=== PATIENT | male | born 1975 | race Caucasian/White ===

== ENCOUNTER 2016-09-17 12:29 | Emergency (ER) | payer SELFPAY ==
[~2016-09-17] VITALS: Ht 188 cm; Wt 145.4 kg
[~2016-09-17 12:29] MED LIST: ASPI-630 PO; CYCL-331 PO; HYDR-971 PO; ZOLP10TA PO
[2016-09-17 12:45] VITALS: BP 135/82
--- NOTE | 2016-09-17 13:25 | ED.ADGEN ---
Past History Past Medical History: A-Fib, Hypertension Past Surgical History: Other Past Surgical History Shoulder surgery Smoking: Non-smoker Alcohol Use: None Drug Use: None Adult General Chief Complaint Chief Complaint back pain [facility] HPI Patient is a 41 year old M who presents with back pain that radiated down L leg. Pt states yesterday stepped off porch wrong and slipped while twisting back. Pt denies fall or hitting back. He thinks he heard a "Pop" in back. Then this am awoke with pain bilateral lower back and pain that radiated down back of L leg to knee. Pain worse with movement or sitting, no loss of bowel or bladder function. No weakness, numbness or tingling. Pt denies abdominal pain, no chest pain Review of Systems Review of Systems Constitutional: Denies fever or chills Eyes: Denies change in visual acuity, redness, or eye pain HENT: Denies nasal congestion or sore throat Respiratory: Denies cough or shortness of breath Cardiovascular: No additional information not addressed in HPI GI: Denies abdominal pain, nausea, vomiting, bloody stools or diarrhea : Denies dysuria or hematuria ] Integument: Denies rash or skin lesions Neurologic: Denies headache, focal weakness or sensory changes E Allergies Allergies Allergies Coded Allergies Type Severity Reaction Last Updated Verified No Known Drug Allergies 01/05/15 No Physical Exam Physical Exam Constitutional: Well developed, well nourished, no acute distress, non-toxic appearance. HENT: Normocephalic, atraumatic, bilateral external ears normal, oropharynx moist, no oral exudates, nose normal. Eyes: PERRL, EOMI, conjunctiva normal, no discharge Neck: Normal range of motion, no tenderness, supple, no stridor. Cardiovascular:Heart rate regular rhythm, no murmur Lungs & Thorax: Bilateral breath sounds clear to auscultation Abdomen: Bowel sounds normal, soft, no tenderness, no masses, no pulsatile masses. Skin: Warm, dry, no erythema, no rash. ] Back: atraumatic, no spinal tenderness to palpation, pt has paraspinal tenderness to palpation R and L Extremities: No tenderness, no cyanosis, no clubbing, ROM intact, no edema. Neurologic: Alert and oriented X 3, normal motor function, normal sensory function, no focal deficits noted. Psychologic: Affect normal, judgement normal, mood normal. Current Patient Data Vital Signs Vital Signs Date Time Temp Pulse Resp B/P (MAP) Pulse Ox O2 Delivery O2 Flow Rate FiO2 09/17/16 12:45 97.3 82 16 98 Room Air vitals all reviewed and normal including BP in nurses note EKG EKG [] Radiology/Procedures Radiology/Procedures [] Course & Med Decision Making Course & Med Decision Making Pertinent Labs and Imaging studies reviewed. (See chart for details) Pt states hx of back problems in past now acute strain no signs of trauma Because pt on Xeralto can not use NSAIDs so will discharge on NOrco and valium with follow up with PCP Final Impression Final Impression BACK PAIN[] Problems: Dragon Disclaimer Dragon Disclaimer This electronic medical record was generated, in whole or in part, using a voice recognition dictation system. JUAN HOPKINS MD September 17, 2016 13:25
== END 2016-09-17 13:50 | disposition home or self-care (01) ==
LOC: ER 12:29
DX: M54.89 Other dorsalgia (principal); I10 Essential (primary) hypertension; I48.91 Unspecified atrial fibrillation; W22.8XXA Striking against or struck by other objects, initial encounter; Y93.89 Activity, other specified; Y99.8 Other external cause status; Y92.89 Other specified places as the place of occurrence of the external cause
CPT/HCPCS: 99283

== ENCOUNTER 2016-12-30 12:33 | Emergency (ER) | payer BC ==
[2016-12-30] MEDS ORDERED: LORazepam 2 MG/ML VIAL IV ONE (13:00)
[2016-12-30] MEDS ORDERED: IV NORMAL SALINE 1,000ML 1,000 ML IV SCH (13:00)
[2016-12-30] MEDS ORDERED: IOHEXOL 300 MG/ML 75 ML VIAL. IV ONE (13:00)
[2016-12-30 13:02] LABS: BASO # 0.1 x10^3/uL (0.0-0.2); BASO % 1 % (0-3); EOS # 0.3 x10^3/uL (0.0-0.7); EOS % 3 % (0-3); HEMATOCRIT 44.7 % (39.0-53.0); HEMOGLOBIN 15.2 g/dL (13.0-17.5); LYMPH # 2.8 x10^3/uL (1.0-4.8); LYMPH % 27 % (24-48); MEAN CORPUSCULAR HEMOGLOBIN 27 pg (25-35); MEAN CORPUSCULAR HGB CONC 34 g/dL (31-37); MEAN CORPUSCULAR VOLUME 80 fL (79-100); MONO # 0.5 x10^3/uL (0.0-1.1); MONO % 5 % (0-9); NEUT % 66 % (31-73); PLATELET COUNT 341 x10^3/uL (140-400); RED CELL DISTRIBUTION WIDTH 13.4 % (11.5-14.5); WHITE BLOOD COUNT 10.6 x10^3/uL (4.0-11.0)
[2016-12-30 13:10] LABS: ALBUMIN 3.6 g/dL (3.4-5.0); ALBUMIN/GLOBULIN RATIO 0.8 (1.0-1.7); CALCIUM 9.1 mg/dL (8.5-10.1); CREATININE 1.3 mg/dL (0.7-1.3); GFR 61.5; POTASSIUM 4.3 mmol/L (3.5-5.1); TOTAL BILIRUBIN 0.4 mg/dL (0.2-1.0); TOTAL PROTEIN 8.1 g/dL (6.4-8.2)
[2016-12-30 13:13] LABS: POTASSIUM ISTAT 4.1 mmol/L (3.5-5.0)
--- NOTE | 2016-12-30 14:14 | RAD ---
Indication: Mid abdominal pain. Blood in urine today. Previous partial nephrectomy. Technique: Axial images and coronal and sagittal reformatted images are provided. 75 mL of intravenous Omnipaque 300 was administered. No comparison is available. One or more of the following individualized dose reduction techniques were utilized for this examination: 1. Automated exposure control 2. Adjustment of the mA and/or kV according to patient size 3. Use of iterative reconstruction technique Findings: The lung bases are clear. There is no pleural effusion. The heart is not enlarged. There is fatty infiltration of the liver. Gallbladder is unremarkable. Spleen is not enlarged. Pancreas and adrenals are unremarkable. Aorta is normal caliber. Left kidney is normal in appearance without stone, obstructing or nonobstructing. There are postsurgical changes in the right kidney compatible with provided history of partial nephrectomy. There is stranding of the perinephric fat. There is right perinephric fluid measuring 6 x 1.5 cm. Left ureter is not dilated. Lack of oral contrast limits evaluation of bowel. There is no small bowel obstruction or mural thickening. There is increased stool in the rectal vault, mild. Appendix is not definitely visualized although there are no secondary findings of an appendicitis. There is a hyperdensity in the dependent portion of the bladder measuring 5 x 2.3 cm in size. There is no bladder wall thickening. The bladder is not distended. Prostate is not enlarged. Calcified phleboliths and prostate calcifications are noted. There are degenerative changes in the spine without evidence of a lytic bone lesion. Impression: 1. Postoperative findings of a right partial nephrectomy. Stranding of the perinephric fat with some perinephric fluid which could be postoperative hematoma. Comparison to any prior studies may be of benefit. Correlate with the timing of previous surgery. 2. Hyperdensity within the dependent portion of the bladder is concerning for clot. Again, comparison to any recent priors would be beneficial to confirm finding in the bladder lumen is acute. Otherwise, cystoscopy may be required.
[2016-12-30] MEDS ORDERED: LIDOCAINE 2% TOPICAL JELLY 30GM TUBE. TP ONE (14:54)
[2016-12-30] MEDS ORDERED: LIDOCAINE 2% JELLY 10ML IN APPLICATOR. MM ONE (15:15)
--- NOTE | 2016-12-30 16:31 | PHYS DOC ---
Past History Past Medical History: A-Fib, Other Past Surgical History: Other Smoking: Non-smoker Additional Smoking Information: Pt uses chewing tobacco Alcohol Use: None Drug Use: None Adult General Chief Complaint Chief Complaint: blood in urine HPI HPI Patient is a 41-year-old male brought to the ED by EMS with bloody urine. Patient had a partial nephrectomy on December 18 at [facility] for a kidney mass that turned out to not be cancer. His surgeon was Dr. Rosado. His urine was initially clear. The patient ordinarily takes Xarelto for A. fib history. The patient initially was out of that and did not restart it right away , when he did restart it first he saw some brown color of his urine. Today, he had yovanny blood in his urine. Patient states he is very anxious about this. He is concerned that he is "bleeding internally". His nerves are very bad. He has sometimes had a prescription for Xanax. He needs something for his nerves. He's had no vomiting or blood in his stools. Review of Systems Review of Systems Constitutional: Denies fever or chills [] GI: He has had some epigastric abdominal pain : As in history of present illness Musculoskeletal: He has low back pain Current Medications Current Medications Current Medications Medications (Trade) Dose Ordered Sig/Elfego Start Time Stop Time Status Last Admin Dose Admin Iohexol (Omnipaque 300 Mg/ml) 75 ml 1X ONCE 12/30/16 13:00 12/30/16 13:01 DC Lidocaine HCl (Uro-Jet) 1 elvie 1X ONCE 12/30/16 15:15 12/30/16 15:16 DC Lidocaine HCl (Xylocaine 2% Topical 30gm Tube) 30 elvie STK-MED ONCE 12/30/16 14:54 12/30/16 14:55 DC Lorazepam (Ativan) 2 mg 1X ONCE 12/30/16 13:00 12/30/16 13:01 DC 12/30/16 12:50 2 MG Sodium Chloride 1,000 ml @ 100 mls/hr Q10H 12/30/16 13:00 12/30/16 22:59 12/30/16 12:50 100 MLS/HR Allergies Allergies Allergies Coded Allergies Type Severity Reaction Last Updated Verified No Known Drug Allergies 01/05/15 No Physical Exam Physical Exam Constitutional: Well developed, well nourished, no acute distress, non-toxic appearance. Vital signs stable, heart rate 79, not hypotensive, warm and dry. HENT: Normocephalic, atraumatic, bilateral external ears normal, nose normal. [ ] Eyes: conjunctiva normal, no discharge. [] Neck: Normal range of motion, no stridor. [] Cardiovascular:Heart rate regular rhythm, no murmur [] Lungs & Thorax: Bilateral breath sounds clear to auscultation [] Abdomen: Bowel sounds normal, soft, no tenderness, no masses, no pulsatile masses. Healing incisions appear healthy. No dehiscence or bleeding. Skin: Warm, dry, no erythema, no rash. [] Extremities: No tenderness, no cyanosis, no clubbing, ROM intact, no edema. [] Neurologic: Alert and oriented X 3, normal motor function, normal sensory function, no focal deficits noted. [] Current Patient Data Vital Signs Vital Signs Date Time Temp Pulse Resp B/P (MAP) Pulse Ox O2 Delivery O2 Flow Rate FiO2 12/30/16 12:33 98.2 85 18 96 Room Air Lab Results Laboratory Tests Test 12/30/16 12:40 12/30/16 13:08 White Blood Count 10.6 x10^3/uL (4.0-11.0) Red Blood Count 5.60 x10^6/uL (4.30-5.70) Hemoglobin 15.2 g/dL (13.0-17.5) Hematocrit 44.7 % (39.0-53.0) Mean Corpuscular Volume 80 fL (79-100) Mean Corpuscular Hemoglobin 27 pg (25-35) Mean Corpuscular Hemoglobin Concent 34 g/dL (31-37) Red Cell Distribution Width 13.4 % (11.5-14.5) Platelet Count 341 x10^3/uL (140-400) Neutrophils (%) (Auto) 66 % (31-73) Lymphocytes (%) (Auto) 27 % (24-48) Monocytes (%) (Auto) 5 % (0-9) Eosinophils (%) (Auto) 3 % (0-3) Basophils (%) (Auto) 1 % (0-3) Neutrophils # (Auto) 7.0 x10^3uL (1.8-7.7) Lymphocytes # (Auto) 2.8 x10^3/uL (1.0-4.8) Monocytes # (Auto) 0.5 x10^3/uL (0.0-1.1) Eosinophils # (Auto) 0.3 x10^3/uL (0.0-0.7) Basophils # (Auto) 0.1 x10^3/uL (0.0-0.2) Prothrombin Time 12.2 SEC (9.4-11.4) H Prothrombin Time INR 1.2 (0.9-1.1) H PTT 37 SEC (23-33) H Sodium Level 138 mmol/L (136-145) Potassium Level 4.3 mmol/L (3.5-5.1) Chloride Level 102 mmol/L (98-107) Carbon Dioxide Level 28 mmol/L (21-32) Anion Gap 8 (6-14) 18 mmol/L (6-14) H Blood Urea Nitrogen 18 mg/dL (8-26) Creatinine 1.3 mg/dL (0.7-1.3) Estimated GFR (Cockcroft-Gault) 61.5 BUN/Creatinine Ratio 14 (6-20) Glucose Level 155 mg/dL (70-99) H 170 mg/dL (60-99) H Calcium Level 9.1 mg/dL (8.5-10.1) Total Bilirubin 0.4 mg/dL (0.2-1.0) Aspartate Amino Transferase (AST) 11 U/L (15-37) L Alanine Aminotransferase (ALT) 28 U/L (16-63) Alkaline Phosphatase 90 U/L (46-116) Total Protein 8.1 g/dL (6.4-8.2) Albumin 3.6 g/dL (3.4-5.0) Albumin/Globulin Ratio 0.8 (1.0-1.7) L POC Hemoglobin 15.0 gm/dL POC Hematocrit 44 % POC Sodium 139 mmol/L (135-145) POC Potassium 4.1 mmol/L (3.5-5.0) POC Chloride 105 mmol/L (98-110) POC Total CO2 21 mmol/L (23-32) L POC Blood Urea Nitrogen 18 mg/dL (8-26) POC Creatinine 1.0 mg/dL (0.5-1.4) POC Ionized Calcium (Elva) 1.14 mmol/L (1.13-1.32) EKG EKG 12-lead EKG read by me. Sinus rhythm. Heart rate 78. There are no acute ST or T wave changes indicative of ischemia or infarction. No STEMI. 1233 [] Radiology/Procedures Radiology/Procedures REASON: recent partial nephrectomy, now hematuria PROCEDURE: CT ABD PELV W/ IV CONTRST ONLY Indication: Mid abdominal pain. Blood in urine today. Previous partial nephrectomy. Technique: Axial images and coronal and sagittal reformatted images are provided. 75 mL of intravenous Omnipaque 300 was administered. No comparison is available. One or more of the following individualized dose reduction techniques were utilized for this examination: 1. Automated exposure control 2. Adjustment of the mA and/or kV according to patient size 3. Use of iterative reconstruction technique Findings: The lung bases are clear. There is no pleural effusion. The heart is not enlarged. There is fatty infiltration of the liver. Gallbladder is unremarkable. Spleen is not enlarged. Pancreas and adrenals are unremarkable. Aorta is normal caliber. Left kidney is normal in appearance without stone, obstructing or nonobstructing. There are postsurgical changes in the right kidney compatible with provided history of partial nephrectomy. There is stranding of the perinephric fat. There is right perinephric fluid measuring 6 x 1.5 cm. Left ureter is not dilated. Lack of oral contrast limits evaluation of bowel. There is no small bowel obstruction or mural thickening. There is increased stool in the rectal vault, mild. Appendix is not definitely visualized although there are no secondary findings of an appendicitis. There is a hyperdensity in the dependent portion of the bladder measuring 5 x 2.3 cm in size. There is no bladder wall thickening. The bladder is not distended. Prostate is not enlarged. Calcified phleboliths and prostate calcifications are noted. There are degenerative changes in the spine without evidence of a lytic bone lesion. Impression: 1. Postoperative findings of a right partial nephrectomy. Stranding of the perinephric fat with some perinephric fluid which could be postoperative hematoma. Comparison to any prior studies may be of benefit. Correlate with the timing of previous surgery. 2. Hyperdensity within the dependent portion of the bladder is concerning for clot. Again, comparison to any recent priors would be beneficial to confirm finding in the bladder lumen is acute. Otherwise, cystoscopy may be required. DICTATED AND SIGNED BY: EDWARD HERNANDEZ MD DATE: 12/30/16 1408 [] Course & Med Decision Making Course & Med Decision Making Pertinent Labs and Imaging studies reviewed. (See chart for details) 41-year-old male who presents with hematuria after a partial nephrectomy on December 18. The patient is stable, with stable vital signs, but does have gross hematuria on presentation. Patient was given normal saline. He was extremely anxious and nervous so he was given some IV Ativan. Labs obtained and are unremarkable with stable hemoglobin at 15. I discussed the patient's CT scan with the radiologist. He does not see anything concerning in a patient who has had a recent partial nephrectomy, some evidence of blood around the right kidney and clot in the bladder, both of which are not surprising. The patient continued to complain of some dysuria and some feeling of not being able to empty. I believe his bladder clot is causing some obstruction. I spoke with the urologist taking calls for Dr. Rosado, the patient's surgeon. We discussed the case. His recommendation is to have the patient attempts to pass the bladder clot by urinating, if unable to do so, use a large Mcfarlane catheter to try dissection and/or irrigate the clot out. After this, if the patient is able to urinate, and if we can see through the patient's urine, he may be discharged. If the patient is not able to urinate or if the urine is thick and opaque, the patient needs to be hospitalized for 3 way bladder irrigation. ED RN did place a large Mcfarlane and was able to evacuate blood clot through the Mcfarlane. Some bladder irrigation was done and she felt that the patient's bladder emptied and clots were evacuated by the Mcfarlane. Therefore, the Mcfarlane was discontinued. The patient was able to urinate a small amount which did have a blood clot in it but is transparent although red. The patient is stable for discharge, we emphasized pushing fluids and he should return to the hospital if he has urinary retention or his his urine becomes opaque due to the amount of blood. Since his urologist/surgeon is at [facility], if he stable to do so, I advised him to return there. Also per the urologist he should hold his oral toe for a couple of days and he was advised to do so. [] Dragon Disclaimer Dragon Disclaimer This chart was dictated in whole or in part using Voice Recognition software in a busy, high-work load, and often noisy Emergency Department environment. It may contain unintended and wholly unrecognized errors or omissions. Departure Departure: Impression: Primary Impression: Hematuria, gross Additional Impressions: H/O partial nephrectomy Acute urinary retention Blood clot in bladder Disposition: HOME, SELF-CARE Condition: IMPROVED Referrals: PCP,NO (PCP) Patient Instructions: Hematuria, Adult, Urinary Retention, Acute, Male, Easy-to -Read Additional Instructions: Drink plenty of fluids, we want you to urinate frequently to help prevent a large blood clot from re-forming in your bladder. If you are unable to urinate and feel like there is another clot preventing you from urinating, attempt to urinate. If you are unable, return to emergency. If you start having urine that looks like straight blood, looks more like tomato juice than Shawn-Aid, return to emergency. Do not take Xarelto untill you are advised to restart it. Call the office tomorrow to check in with your urologist and make an appointment. Scripts Hydrocodone Bit/Acetaminophen (NORCO 5-325 TABLET) 1 Each Tablet 1-2 TAB PO PRN Q6HRS Y for PAIN, #10 TAB 0 Refills Prov: LESLEY TAPIA MD 12/30/16 Phenazopyridine Hcl (PYRIDIUM) 200 Mg Tablet 200 MG PO TID for urinary burning, #10 TAB Prov: LESLEY TAPIA MD 12/30/16 Problem Qualifiers LESLEY TAPIA MD Dec 30, 2016 16:31
[2016-12-30 16:39] VITALS: BP 148/80
[2016-12-30] MEDS ORDERED: HYDR-971 PO (16:48)
[2016-12-30] MEDS ORDERED: PHEN-318 PO (16:48)
[2016-12-30] MEDS ORDERED: IV NORMAL SALINE 1,000ML 1,000 ML IV ONE (19:00)
== END 2016-12-30 16:45 | disposition home or self-care (01) ==
LOC: ER 12:33
DX: R31.0 Gross hematuria (principal); R33.9 Retention of urine, unspecified; N32.89 Other specified disorders of bladder; I48.91 Unspecified atrial fibrillation; F17.220 Nicotine dependence, chewing tobacco, uncomplicated; Z90.5 Acquired absence of kidney; Z79.01 Long term (current) use of anticoagulants
CPT/HCPCS: 36415; 51702; 74177; 80047; 80053; 85025; 85610; 85730; 96361; 96374; 99285; J2060; J7030

== ENCOUNTER 2016-12-30 19:10 | Emergency (ER) | payer BC ==
[~2016-12-30] VITALS: Ht 188 cm; Wt 145.4 kg
[~2016-12-30 19:10] MED LIST changes: +PHEN-318 PO
[2016-12-30] MEDS ORDERED: LIDOCAINE 2% TOPICAL JELLY 30GM TUBE. TP ONE (19:18)
[2016-12-30] MEDS ORDERED: LIDOCAINE 2% JELLY 10ML IN APPLICATOR. ONE (19:19)
[2016-12-30] MEDS ORDERED: HYDROmorphone PF 1 MG/ML DISP.SYRIN ONE (19:30)
[2016-12-30] MEDS ORDERED: IV NORMAL SALINE 1,000ML 1,000 ML IV ONE (20:15)
[2016-12-30] MEDS ORDERED: HYDROmorphone PF 1 MG/ML DISP.SYRIN IM ONE (20:15)
[2016-12-30 20:27] LABS: BASO # 0.1 x10^3/uL (0.0-0.2); BASO % 1 % (0-3); EOS # 0.2 x10^3/uL (0.0-0.7); EOS % 2 % (0-3); HEMATOCRIT 40.1 % (39.0-53.0); HEMOGLOBIN 13.8 g/dL (13.0-17.5); LYMPH # 2.7 x10^3/uL (1.0-4.8); LYMPH % 26 % (24-48); MEAN CORPUSCULAR HEMOGLOBIN 27 pg (25-35); MEAN CORPUSCULAR HGB CONC 34 g/dL (31-37); MEAN CORPUSCULAR VOLUME 79 fL (79-100); MONO # 0.7 x10^3/uL (0.0-1.1); MONO % 7 % (0-9); NEUT # 6.6 x10^3uL (1.8-7.7); NEUT % 64 % (31-73); PLATELET COUNT 290 x10^3/uL (140-400); RED BLOOD COUNT 5.07 x10^6/uL (4.30-5.70); WHITE BLOOD COUNT 10.2 x10^3/uL (4.0-11.0)
[2016-12-30 20:33] LABS: ALBUMIN 3.3 g/dL (3.4-5.0); ALBUMIN/GLOBULIN RATIO 0.8 (1.0-1.7); CALCIUM 8.7 mg/dL (8.5-10.1); CREATININE 1.2 mg/dL (0.7-1.3); GFR 67.4; POTASSIUM 3.9 mmol/L (3.5-5.1); TOTAL BILIRUBIN 0.4 mg/dL (0.2-1.0); TOTAL PROTEIN 7.3 g/dL (6.4-8.2)
[2016-12-30] MEDS ORDERED: LORazepam 2 MG/ML VIAL ONE (20:57)
[2016-12-30] MEDS ORDERED: IV NORMAL SALINE 250ML 250 ML ONE (21:27)
[2016-12-30] MEDS ORDERED: IV NORMAL SALINE 500ML 500 ML ONE (21:29)
[2016-12-30] MEDS ORDERED: CONTRAST GIVEN MC PRN (21:30)
[2016-12-30 21:55] VITALS: BP 137/89
[2016-12-30] MEDS ORDERED: IOHEXOL 300 MG/ML 75 ML VIAL. IV ONE (22:00)
[2016-12-30] MEDS ORDERED: HYDROmorphone PF 1 MG/ML DISP.SYRIN IV ONE (22:15)
[2016-12-30] MEDS ORDERED: ONDANSETRON PF 4 MG/2 ML VIAL. IV ONE (22:15)
--- NOTE | 2016-12-30 22:44 | PHYS DOC ---
Past History Past Medical History: A-Fib, Other Past Surgical History: Other Smoking: Non-smoker Alcohol Use: None Drug Use: None Adult General Chief Complaint Chief Complaint: URINARY RETENTION HPI HPI Patient is a 41-year-old gentleman with history of paroxysmal atrial fibrillation who is on xarelto, who had a partial right nephrectomy done on December 18 at [facility] by Dr. Wesley secondary to a mass that per the patient's report he was told was not cancerous. Patient was seen here earlier today secondary to urinary retention and hematuria. Patient had a Mcfarlane catheter placed and was irrigated in the ER and his urine was irrigated to clear. After discussion with Dr. Birmingham, the patient was discharged from [facility] in stable condition without further hematuria. Patient had been given instructions to follow-up at [facility] if any further concerns or problems since we do not have access to urology here. Patient was instructed to return to the ER here if he should have any concerns or worries and is unable to get to [facility]. Patient was discharged approximately 2 hours prior to arrival to the ER. Patient reports she went home feeling well however prostate 2 hours after he went home he had difficulty with urination and was having severe suprapubic abdominal pain and felt like he was obstructed again. Patient reports that he was urinating gross blood prior to arrival to the ER. Upon arrival to the ER the patient was noted to be extremely diaphoretic, uncomfortable, and appeared to be in severe pain. Patient's vital signs were stable. He was tachycardic with a heart rate of 110. Patient's blood pressure was slightly elevated. Patient did have a fullness and tightness suprapubic region. A three-way Mcfarlane catheter was immediately inserted with a 3 L bag of continuous bladder irrigation initiated. Patient reported significant relief in his pain level once we're able to assist him with clearing his urine. Patient's urine initially was bright red and was irrigated with a Bello syringe. Some clots were obtained, after approximately 1 L of CBI his urine started to turn a light pink color. CBI was continued. Patient received approximately 4 L of CBI when he started having severe pain again. It appeared that his Mcfarlane catheter clotted OFF his urine output had returned to a dark red color again. Patient's Mcfarlane catheter was removed and the clots were irrigated and patient had a three- way catheter reinserted and CBI was continued. Immediately after the CBI was presumed the patient became diaphoretic and appeared anxious and started complaining of severe pain to his right flank. Patient reports that it felt like his kidney was bleeding and he appeared to be in a moderate amount of discomfort. Secondary to the patient's severe acute onset of his right flank pain and his gross hematuria I was concerned that he might have an arterial bleed within his right artery as a complication of his right partial nephrectomy. EMS had been notified for stat transfer however with him being on a blood thinner felt that the patient can be stabilized further prior to transfer. 2 units of emergent blood was transfused on the patient and 2 units of fresh frozen plasma was ordered to be thawed. Patient was given adequate analgesia and hydration was continued. A CTa of his abdomen and pelvis was ordered however after discussion with Dr. Birmingham the urologist who is covering for Dr. Wesley, he recommended to hold off on the CT scan since the patient had a ready on the CT earlier today and he would likely need a CT scan/arteriogram done when he arrives at [facility]. The CT scan was therefore canceled. Prior to transfer the patient will receive adequate volume and blood resuscitation and FFP to assist with reversal of his coagulation. Patient is currently not in atrial fibrillation and reports that he hasn't been in atrial fibrillation for a while. Patient reports that he goes in and out of it. I feel that it would be beneficial and risks and benefits far outweigh giving him FFP at this time. The case was discussed with the ER doctor at [facility] , and he was updated on the events that have transpired including the pain that he is having, the discussion with Dr. Camacho, the blood products that have been transfused. Dr. El has agreed to accept transfer of this patient. I discussed the transfer to [facility] with the patient and he is in complete agreement. He understands that we do not have access to urology here. I discussed the possibility of transfer him somewhere closer. He agrees that he would prefer to be at the facility where his primary urologist can care for him. Review of systems: Constitutional: Denies fever or chills Eyes: Denies change in visual acuity, redness, or eye pain HENT: Denies nasal congestion or sore throat All other review systems are negative except as documented in the history of present illness portion. Physical exam: Constitutional: Well developed, well nourished, no acute distress, non-toxic appearance. HENT: Normocephalic, atraumatic, bilateral external ears normal, nose normal. Eyes: EOMI, conjunctiva normal, no discharge. Neck: Normal range of motion, no tenderness, supple, no stridor. Cardiovascular:Heart rate regular rhythm Lungs & Thorax: Bilateral breath sounds clear to auscultation no respiratory distress Abdomen: Tenderness to palpation suprapubic region. Patient initially diaphoretic upon arrival to the ER. Please see above. Skin: Diaphoretic. Improved after Mcfarlane catheter Back: No tenderness, no CVA tenderness. While patient was here he started experiencing right flank pain during irrigation. See above Extremities: No tenderness, no cyanosis, no clubbing, ROM intact, no edema. Neurologic: Alert and oriented X 3, normal motor function, normal sensory function, no focal deficits noted. Psychologic: Affect normal, judgement normal, mood normal. Assessment and plan This is a 41-year-old gentleman with a recent partial right nephrectomy secondary to a possible mass who presents to ER today secondary to massive hematuria and severe right flank pain. Patient is been aggressively volume resuscitated here in the ED with 4 units of packed red blood cells and 2 units of FFP. Case has been discussed with both the urologist and the ER doctor. Patient will require transfer to [facility] for further evaluation of his gross hematuria. Patient will likely need interventional radiology as well as urology which are interventions and specialists which we do not have access to here at [facility]. This will be a higher level of care that the patient will need. Patient has been in agreement with this transfer. I have spoken to the urologist and the ER doctor and they're both in agreement with the transfer of this patient at this time. Patient has been stabilized to the best of my ability. Critical care time of 2 hours and 15 minutes were utilized and the treatment and management of this patient's massive hematuria, active bleeding, severe pain. This was exclusive of any procedures performed. Direct bedside monitoring and contact was performed throughout the near entirety of this patient's stay in the ED. Current Medications Current Medications Current Medications Medications (Trade) Dose Ordered Sig/Elfego Start Time Stop Time Status Last Admin Dose Admin Hydromorphone HCl (Dilaudid) 1 mg 1X ONCE 12/30/16 22:15 12/30/16 22:16 DC Info (Do NOT chart on this entry -- for MONITORING) 1 each PRN DAILY PRN 12/30/16 21:30 01/01/17 21:29 Iohexol (Omnipaque 300 Mg/ml) 75 ml 1X ONCE 12/30/16 22:00 12/30/16 22:01 DC Lidocaine HCl (Uro-Jet) 10 elvie STK-MED ONCE 12/30/16 19:19 12/30/16 19:20 DC Lidocaine HCl (Xylocaine 2% Topical 30gm Tube) 30 elvie STK-MED ONCE 12/30/16 19:18 12/30/16 19:19 DC Lorazepam (Ativan) 2 mg STK-MED ONCE 12/30/16 20:57 12/30/16 20:58 DC Ondansetron HCl (Zofran) 4 mg 1X ONCE 12/30/16 22:15 12/30/16 22:16 DC Sodium Chloride 500 ml @ As Directed STK-MED ONCE 12/30/16 21:29 12/30/16 21:30 DC Allergies Allergies Allergies Coded Allergies Type Severity Reaction Last Updated Verified No Known Drug Allergies 01/05/15 No Current Patient Data Lab Results Laboratory Tests Test 12/30/16 19:45 White Blood Count 10.2 x10^3/uL (4.0-11.0) Red Blood Count 5.07 x10^6/uL (4.30-5.70) Hemoglobin 13.8 g/dL (13.0-17.5) Hematocrit 40.1 % (39.0-53.0) Mean Corpuscular Volume 79 fL (79-100) Mean Corpuscular Hemoglobin 27 pg (25-35) Mean Corpuscular Hemoglobin Concent 34 g/dL (31-37) Red Cell Distribution Width 13.0 % (11.5-14.5) Platelet Count 290 x10^3/uL (140-400) Neutrophils (%) (Auto) 64 % (31-73) Lymphocytes (%) (Auto) 26 % (24-48) Monocytes (%) (Auto) 7 % (0-9) Eosinophils (%) (Auto) 2 % (0-3) Basophils (%) (Auto) 1 % (0-3) Neutrophils # (Auto) 6.6 x10^3uL (1.8-7.7) Lymphocytes # (Auto) 2.7 x10^3/uL (1.0-4.8) Monocytes # (Auto) 0.7 x10^3/uL (0.0-1.1) Eosinophils # (Auto) 0.2 x10^3/uL (0.0-0.7) Basophils # (Auto) 0.1 x10^3/uL (0.0-0.2) Sodium Level 138 mmol/L (136-145) Potassium Level 3.9 mmol/L (3.5-5.1) Chloride Level 103 mmol/L (98-107) Carbon Dioxide Level 25 mmol/L (21-32) Anion Gap 10 (6-14) Blood Urea Nitrogen 16 mg/dL (8-26) Creatinine 1.2 mg/dL (0.7-1.3) Estimated GFR (Cockcroft-Gault) 67.4 BUN/Creatinine Ratio 13 (6-20) Glucose Level 110 mg/dL (70-99) H Calcium Level 8.7 mg/dL (8.5-10.1) Total Bilirubin 0.4 mg/dL (0.2-1.0) Aspartate Amino Transferase (AST) 10 U/L (15-37) L Alanine Aminotransferase (ALT) 26 U/L (16-63) Alkaline Phosphatase 82 U/L (46-116) Total Protein 7.3 g/dL (6.4-8.2) Albumin 3.3 g/dL (3.4-5.0) L Albumin/Globulin Ratio 0.8 (1.0-1.7) L EKG EKG [] Radiology/Procedures Radiology/Procedures [] Course & Med Decision Making Course & Med Decision Making Pertinent Labs and Imaging studies reviewed. (See chart for details) [] Dragon Disclaimer Dragon Disclaimer This chart was dictated in whole or in part using Voice Recognition software in a busy, high-work load, and often noisy Emergency Department environment. It may contain unintended and wholly unrecognized errors or omissions. Departure Departure: Impression: Primary Impression: Hematuria Additional Impressions: Anticoagulated Postoperative anemia due to acute blood loss Paroxysmal atrial fibrillation Flank pain Disposition: 05 XFER OTHER Condition: GUARDED Referrals: PCP,NO (PCP) Problem Qualifiers REGINALDO SAWYER MD Dec 30, 2016 22:44
== END 2016-12-30 22:15 | disposition short-term general hospital (02) ==
LOC: ER 19:10
DX: R31.0 Gross hematuria (principal); D62 Acute posthemorrhagic anemia; I48.0 Paroxysmal atrial fibrillation; Z79.01 Long term (current) use of anticoagulants; Z90.5 Acquired absence of kidney
CPT/HCPCS: 36415; 51702; 80053; 85025; 86850; 86900; 86901; 86920; 86927; 96361; 96372; 96374; 99291; 99292; J1170; P9016; P9017; 99285-25; J7030

== ENCOUNTER 2017-02-21 13:36 | Emergency (ER) | payer SELFPAY ==
[~2017-02-21] VITALS: Ht 188 cm; Wt 145.4 kg
--- NOTE | 2017-02-21 14:50 | PHYS DOC ---
General Chief Complaint: BACK PAIN OR INJURY Stated Complaint: BACK PAIN Time Seen by MD: 14:35 Source: patient, old records Exam Limitations: no limitations Problems: History of Present Illness Initial Comments Patient is a 41-year-old male who comes to the ED complaining of low back injury. 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 He's had right-sided low back pain radiating to the right buttock and mid way down his posterior right thigh. He denies any leg weakness no incontinence no saddle anesthesia. He's had one prior exacerbation with similar symptoms and he thought he would be able to treat this at home. I find him in the exam room standing and he states that his a position of comfort. He does move very gingerly as if in severe discomfort when asked him to sit for neurologic evaluation. He admits that his back pain complaints are likely worsened by his weight and states he is working on weight loss. He does continue to smoke cigarettes he states [id number] medications are not helping. He is in agreement that imaging would be unnecessary as no trauma has actually taken place and no midline or bony discomfort is present. Timing/Duration: 24 hours Severity: severe Modifying Factors: worse with movement, improves with rest Associated Symptoms: other Allergies: Coded Allergies: ketorolac (Verified Allergy, Unknown, 02/21/17) tramadol (Verified Allergy, Unknown, 02/21/17) warfarin (Verified Allergy, Unknown, 02/21/17) Past Medical History Medical History: other (atrial fibrillation no longer on anticoagulation due to severe GI bleed, UTI) Surgical History: other (partial nephrectomy) Social History Smoker: cigarettes Alcohol: none Drugs: none Review of Systems Constitutional: denies chills, denies fever, denies malaise Respiratory: denies cough, denies shortness of breath Cardiovascular: denies chest pain, denies palpitations Gastrointestinal: denies abdominal pain, denies nausea, denies vomiting Genitourinary: denies dysuria, denies frequency, denies hematuria Musculoskeletal: see HPI, denies joint pain, denies neck pain Psychiatric/Neurological: see HPI, denies numbness, denies paresthesia, denies pre-existing deficit Physical Exam General Appearance: moderate distress, obese Ear, Nose, Throat: normal ENT inspection Neck: full range of motion, supple Respiratory: normal breath sounds, no respiratory distress Gastrointestinal: non tender, soft Back: no CVA tenderness, no vertebral tenderness, decreased range of motion, muscle spasm Extremities: normal range of motion, non-tender 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 He would like to receive a prescription and go home states he will return as needed. He was advised to stop smoking and continue to pursue weight loss. Departure Time of Disposition: 14:48 Disposition: 01 HOME, SELF-CARE Diagnosis: low back strain Condition: GOOD Patient Instructions: Low Back Strain with [facility] Additional Instructions: Off work through Saturday, note given. Keep activity to "pain free" [id number] Tylenol for baseline discomfort. Starting tomorrow heating pad to affected area 20 minutes at a time 4-6 times daily followed by gentle stretching. Prescriptions: Valium 5 mg quantity 5, Vicoprofen 7.5 mg, quantity 15 Do not take the medications together as they will have additive sedative effects. Follow-up with your doctor next week if no improvement. Return to ED with new or changing symptoms. VERONICA EID DO Feb 21, 2017 14:50
[2017-02-21 14:57] VITALS: BP 161/89
== END 2017-02-21 14:55 | disposition home or self-care (01) ==
LOC: ER 13:36
DX: S39.012A Strain of muscle, fascia and tendon of lower back, initial encounter (principal); I48.91 Unspecified atrial fibrillation; F17.210 Nicotine dependence, cigarettes, uncomplicated; Z87.440 Personal history of urinary (tract) infections; Z88.6 Allergy status to analgesic agent; Z88.8 Allergy status to other drugs, medicaments and biological substances; X50.1XXA Overexertion from prolonged static or awkward postures, initial encounter; Y93.89 Activity, other specified; Y99.8 Other external cause status; Y92.89 Other specified places as the place of occurrence of the external cause
CPT/HCPCS: 99283

== ENCOUNTER 2017-07-29 08:29 | Emergency (ER) | payer SELFPAY ==
[~2017-07-29] VITALS: Ht 188 cm; Wt 149.7 kg
[2017-07-29 08:40] VITALS: BP 141/89
[2017-07-29] MEDS ORDERED: CYCL5TAB PO (09:03)
[2017-07-29] MEDS ORDERED: HYDR-2758 PO (09:03)
--- NOTE | 2017-07-29 09:04 | PHYS DOC ---
Past History Past Medical History: A-Fib Past Surgical History: Other Smoking: Non-smoker Additional Smoking Information: chews tobacco Alcohol Use: None Drug Use: None Adult General Chief Complaint Chief Complaint: BACK PAIN OR INJURY HPI HPI This is a pleasant 42-year-old male presenting to the emergency department today with lower back pain that radiates into his left leg. He reports this is chronic condition that is been acutely exacerbated by work he was doing yesterday. He has taken opiates in the past for this which have helped but currently does not have opiates. He denies any fevers or chills. The pain is moderate in severity worse with moving. No specific timing. It is not associated with polyuria or dysuria. He reports normal urine color. He denies any pain or swelling in his testicles. he denies any recent trauma. Past medical history: History of hematuria and "spot on kidney". History of A. fib status post ablation. not currently or recently on anticoagulants. Past surgical history: Partial nephrectomy on the right. Ablation, and shoulder surgery. Social history: Positive for smoking, negative for drinking or drug use. Review of systems is negative for chest pain shortness of breath abdominal pain nausea vomiting diaphoresis. He denies numbness weakness or tingling in his extremities. He denies any pain or swelling in his testicles. All other review of systems is negative unless otherwise noted in history of present illness. ED course: 42-year-old male presenting with left lower back pain that radiates into his side suggestive of sciatica. Upon arrival patient is afebrile. Blood pressure mildly elevated. Pulse within normal limits. On evaluation the patient is nontoxic appearing and appears to be mildly uncomfortable from the pain. Abdomen is soft nondistended nontender palpation without rebound tenderness or guarding. No pulsatile mass upon palpation. No masses or hernias. Back exam shows no CVA tenderness. Laparoscopic abdominal surgery sites are clean dry and intact on the right side status post left partial nephrectomy. On examination the patient's extremities has 2+ deep tendon reflexes bilaterally with palpable pulses in both extremities. Patient is able to wiggle toes and has normal sensation in the foot. 2 second cap refill bilaterally. The remainder the exam is unremarkable. We will order the patient a muscle relaxant and pain medication to follow-up with her primary care doctor in the next 4-5 days. The patient was then discharged home in stable condition to follow up with their primary care physician over the next 2-3 days. They were to return if their symptoms worsened or if they were concerned for any reason. [id number] discharge instructions and return precautions were given. Patient's questions were answered to their satisfaction. Patient is comfortable with plan. Review of Systems Review of Systems SEE ABOVE. Allergies Allergies Allergies Coded Allergies Type Severity Reaction Last Updated Verified ketorolac Allergy Unknown 07/29/17 Yes tramadol Allergy Unknown 07/29/17 Yes warfarin Allergy Unknown 07/29/17 Yes Physical Exam Physical Exam SEE ABOVE Constitutional: Well developed, well nourished, no acute distress, non-toxic appearance. [] HENT: Normocephalic, atraumatic, bilateral external ears normal, oropharynx moist, no oral exudates, nose normal. [] Eyes: PERRLA, EOMI, conjunctiva normal, no discharge. [] Neck: Normal range of motion, no tenderness, supple, no stridor. [] Cardiovascular:Heart rate regular rhythm, no murmur [] Lungs & Thorax: Bilateral breath sounds clear to auscultation [] Abdomen: Bowel sounds normal, soft, no tenderness, no masses, no pulsatile masses. [] Skin: Warm, dry, no erythema, no rash. [] Back: No tenderness, no CVA tenderness. [] Extremities: No tenderness, no cyanosis, no clubbing, ROM intact, no edema. [] Neurologic: Alert and oriented X 3, normal motor function, normal sensory function, no focal deficits noted. [] Psychologic: Affect normal, judgement normal, mood normal. [] Current Patient Data Vital Signs Vital Signs Date Time Temp Pulse Resp B/P (MAP) Pulse Ox O2 Delivery O2 Flow Rate FiO2 07/29/17 08:40 97.9 88 16 99 Room Air EKG EKG [] Radiology/Procedures Radiology/Procedures [] Course & Med Decision Making Course & Med Decision Making Pertinent Labs and Imaging studies reviewed. (See chart for details) [] Dragon Disclaimer Dragon Disclaimer This electronic medical record was generated, in whole or in part, using a voice recognition dictation system. Departure Departure: Impression: Primary Impression: Back pain Disposition: HOME, SELF-CARE Condition: STABLE Referrals: PCP,NO (PCP) JOSHUA COHEN MD Patient Instructions: Back Exercises, [id number], Back Pain, Adult Additional Instructions: Thank you for allowing us to participate in your care today. Followup with your primary care physician in 3 days if your symptoms do not improve. Call your Primary Doctor tomorrow and inform them of your visit today. If you do not have a primary care provider you can ask for a list of our primary care providers. Return to the emergency department you have any new or concerning findings. This should be evaluated by the primary care physician and any necessary consulting services for continued management within a few days after discharge. Return to emergency room if you have any new or concerning symptoms including but not limited to fever, chills, nausea, vomiting, intractable pain, any new rashes, chest pain, shortness of air, uncontrolled bleeding, difficulty breathing, and/or vision loss. You may have been prescribed medication that can change in your level of thinking and ability to operate machinery. These medications include hydrocodone and Ativan. Also, Benadryl has been known to do this as well. Be sure to check with your pharmacist and ask if the medications you've prescribed can affect your level of consciousness. I recommend not operating heavy machinery or driving while on medication such as these. Scripts Cyclobenzaprine Hcl (CYCLOBENZAPRINE HCL) 5 Mg Tablet 1 TAB PO QHS, #7 TAB Prov: BYRON TORRES MD 07/29/17 Hydrocodone Bit/Acetaminophen (HYDROCODONE-APAP 5-325 ) 1 Each Tablet 1 TAB PO PRN Q6HRS Y for PAIN, #10 TAB 0 Refills Prov: BYRON TORRES MD 07/29/17 BYRON TORRES MD Jul 29, 2017 09:04
== END 2017-07-29 09:19 | disposition home or self-care (01) ==
LOC: ER 08:29
DX: M54.5 Low back pain (principal); I48.91 Unspecified atrial fibrillation; F17.220 Nicotine dependence, chewing tobacco, uncomplicated; Z88.6 Allergy status to analgesic agent; Z88.8 Allergy status to other drugs, medicaments and biological substances
CPT/HCPCS: 99283

== ENCOUNTER 2018-05-28 17:39 | Emergency (ER) | payer BC ==
[~2018-05-28] VITALS: Ht 188 cm; Wt 146.1 kg
[~2018-05-28 17:39] MED LIST changes: +CYCL5TAB PO; +HYDR-2155 PO; +HYDR-3165 PO; -HYDR-971 PO
[2018-05-28] MEDS ORDERED: ORPH-16 PO (18:30)
[2018-05-28] MEDS ORDERED: OXYC1TAB15 PO (18:30)
--- NOTE | 2018-05-28 18:30 | PHYS DOC ---
Past History Past Medical History: A-Fib, Other Past Surgical History: Other Smoking: Non-smoker Additional Smoking Information: CHEWS TOBACCO Alcohol Use: None Drug Use: None Adult General Chief Complaint Chief Complaint: BACK PAIN OR INJURY HPI HPI Patient is a 43-year-old male that presents with a one-day history of low back pain. This started yesterday when he tried to lift a transmission. He has a history of back pain that goes back 3 or 4 years and has episodes around every 6 months of sharp pain in his lower back after activity. He took Tylenol and Advil yesterday and all day today to no relief. He describes the pain as a 10 out of 10 and says that it radiates a little bit to his left hip. He describes this episode as very similar to the episodes he's experienced before, when they have happened he has gotten relief from a muscle relaxant and hydrocodone has helped a little bit. Review of Systems Review of Systems Constitutional: Denies fever or chills [] Eyes: Denies change in visual acuity, redness, or eye pain [] HENT: Denies nasal congestion or sore throat [] Respiratory: Denies cough or shortness of breath [] Cardiovascular: Denies chest pain or palpitations GI: Denies abdominal pain, nausea, vomiting, or diarrhea [] : Denies dysuria or hematuria [] Musculoskeletal: Admits to back pain Integument: Denies rash or skin lesions [] Neurologic: Denies headache Complete systems were reviewed and found to be within normal limits, except as documented in this note. Allergies Allergies Allergies Coded Allergies Type Severity Reaction Last Updated Verified ketorolac Allergy Unknown 05/28/18 Yes tramadol Allergy Unknown 07/29/17 Yes warfarin Allergy Unknown 07/29/17 Yes Physical Exam Physical Exam Constitutional: Well developed, well nourished, no acute distress, non-toxic appearance. [] HENT: Normocephalic, atraumatic, nose normal. [] Eyes: Conjunctiva normal, no discharge. [] Neck: Normal range of motion, no tenderness, no meningeal signs Cardiovascular: Heart rate regular rhythm, no murmur [] Lungs & Thorax: Bilateral breath sounds clear to auscultation [] Abdomen: Soft, no tenderness. [] Skin: Warm, dry, no erythema, no rash. [] Back: Back pain from the center of the low back L2 - L5, radiates down into the left gluteal region, straight leg raise positive bilateral. [] Extremities: No tenderness, no edema. [] Neurologic: Alert and oriented X 3, no focal deficits noted. [] Psychologic: Affect normal, judgement normal, mood normal. [] Current Patient Data Vital Signs Vital Signs Date Time Temp Pulse Resp B/P (MAP) Pulse Ox O2 Delivery O2 Flow Rate FiO2 05/28/18 17:50 97.5 100 18 97 Room Air EKG EKG [] Radiology/Procedures Radiology/Procedures [] Course & Med Decision Making Course & Med Decision Making Pertinent Labs and Imaging studies reviewed. (See chart for details) 43 YO M that presented with a one day history of lower back pain. He has a 3-4 year history of episodes of lower back pain associated with activity. History and physical exam were concerning for muscle strain or herniated disc in the lower back. Pain management and physical therapy options for home were discussed. Patient was told to consider further work-up including a lower back MRI as an outpatient if the pain were to get worse or the episodes were to increase in frequency. Patient stable for discharge with outpatient follow-up with PCP. Discussed findings and plan with patient, who acknowledge understanding and agreement. Dragon Disclaimer Dragon Disclaimer This electronic medical record was generated, in whole or in part, using a voice recognition dictation system. Departure Departure: Impression: Primary Impression: Back pain Disposition: 01 HOME, SELF-CARE Condition: STABLE Referrals: PCP,NO (PCP) Patient Instructions: Back Pain, Adult, [id number] Scripts Orphenadrine Citrate (ORPHENADRINE CITRATE) 100 Mg Tablet.er 1 TAB PO BID PRN for MUSCLE SPASMS, #14 TAB 0 Refills Prov: SPENCER LIN DO 05/28/18 Oxycodone Hcl/Acetaminophen (PERCOCET 5-325 MG TABLET ) 1 Each Tablet 0.5-1 TAB PO PRN Q6HRS PRN for PAIN, #10 TAB Prov: SPENCER LIN DO 05/28/18 Problem Qualifiers Primary Impression: Back pain Back pain location: low back pain Chronicity: acute Back pain laterality: bilateral Sciatica presence: with sciatica Sciatica laterality: sciatica of right side Qualified Codes: M54.41 - Lumbago with sciatica, right side SPENCER LIN DO May 28, 2018 18:30
[2018-05-28] MEDS ORDERED: KETOROLAC 30 MG/ML VIAL. ONE (18:32)
[2018-05-28 18:42] VITALS: BP 136/76
[2018-05-28] MEDS ORDERED: KETOROLAC 30 MG/ML VIAL. IM ONE (18:45)
== END 2018-05-28 18:42 | disposition home or self-care (01) ==
LOC: ER 17:39
DX: M54.41 Lumbago with sciatica, right side (principal); I48.91 Unspecified atrial fibrillation; F17.220 Nicotine dependence, chewing tobacco, uncomplicated; Z88.6 Allergy status to analgesic agent; Z88.8 Allergy status to other drugs, medicaments and biological substances
CPT/HCPCS: 96372; 99283; J1885

== ENCOUNTER 2020-02-25 16:58 | Emergency (ER) | payer SELFPAY ==
[~2020-02-25] VITALS: Ht 182.9 cm; Wt 136.0 kg
[~2020-02-25 16:58] MED LIST changes: +ORPH-16 PO; +OXYC1TAB15 PO
--- NOTE | 2020-02-25 17:42 | RAD ---
EXAM: CHEST ONE VIEW. HISTORY: Cough. COMPARISON: None. FINDINGS: A frontal view of the chest is obtained. There are no confluent infiltrates. There is no pneumothorax or pleural effusion. The heart is not enlarged. IMPRESSION: 1. No confluent infiltrates. Electronically signed by: Maricel Hernandez MD (02/25/2020 5:39 PM) [facility]
--- NOTE | 2020-02-25 17:46 | EKG ---
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
--- NOTE | 2020-02-25 18:02 | PHYS DOC ---
General Adult EDM: Chief Complaint: COUGH HPI: HPI: 44-year-old male past medical history significant for hypertension, atrial fibrillation and insomnia, presents to the ED with complaints of fatigue, tired, lacking energy, chills, lack of appetite, stating he lost 20 pounds since his symptoms started on Saturday. States he had a brief episode of shortness of breath today that he attributed to anxiety, has since resolved. Does not have any routine primary care physician, discontinued his Xarelto due to high cost/financial burden, on aspirin. Is concerned he has mono. (PATRICIA FORD DO) Review of Systems: Review of Systems: Constitutional: Denies fever or chills Eyes: Denies change in visual acuity HENT: Denies nasal congestion or sore throat Respiratory: Denies cough or hemoptysis Cardiovascular: Denies chest pain or edema or syncope GI: Denies abdominal pain, nausea, vomiting, bloody stools or diarrhea : Denies dysuria or hematuria Musculoskeletal: Denies back pain or joint pain Integument: Denies rash Neurologic: Denies headache, focal weakness or sensory changes Endocrine: Denies polyuria or polydipsia Lymphatic: Denies swollen glands Psychiatric: Denies depression or anxiety (PATRICIA FORD DO) Heart Score: Risk Factors: Risk Factors: DM, Current or recent (<one month) smoker, HTN, HLP, family history of CAD, obesity. Risk Scores: Score 0 - 3: 2.5% MACE over next 6 weeks - Discharge Home Score 4 - 6: 20.3% MACE over next 6 weeks - Admit for Clinical Observation Score 7 - 10: 72.7% MACE over next 6 weeks - Early Invasive Strategies (PATRICIA FORD DO) Physical Exam: PE: Constitutional: Well developed, well nourished, no acute distress, non-toxic appearance. [] HENT: Normocephalic, atraumatic, bilateral external ears normal, oropharynx moist, no oral exudates/erythema, nose normal. [] Eyes:EOMI, conjunctiva normal, no discharge. [] Neck: Normal range of motion, no tenderness, supple, no stridor. [] Cardiovascular:Heart rate regular rhythm, no murmur [] Lungs & Thorax: Bilateral breath sounds clear to auscultation [] Abdomen: Bowel sounds normal, soft, no tenderness, no masses, no pulsatile masses. [] No splenomegaly Skin: Warm, dry, no erythema, no rash. [] Back: No tenderness, no CVA tenderness. [] Extremities: No tenderness, no cyanosis, no clubbing, ROM intact, no edema. [] Neurologic: Alert and oriented X 3, normal motor function, normal sensory function, no focal deficits noted. [] Psychologic: Affect flat, judgement normal, mood normal. [] (PATRICIA FORD DO) EKG: EKG: Sinus rhythm at 83 bpm, left axis deviation, QTC 450, no T wave inversions, no ST elevations or ST depressions, no voltage in lead II (PATRICIA FORD DO) Radiology/Procedures: Radiology/Procedures: [][] IMAGING REPORT Signed PATIENT: STEPHANI KANGACCOUNT: [id number] : 1975 LOCATION: ER AGE: 44 SEX: M EXAM STATUS: REG ER ORD. PHYSICIAN: PATRICIA FORD DO REASON: cough PROCEDURE: CHEST AP ONLY EXAM: CHEST ONE VIEW. HISTORY: Cough. COMPARISON: None. FINDINGS: A frontal view of the chest is obtained. There are no confluent infiltrates. There is no pneumothorax or pleural effusion. The heart is not enlarged. IMPRESSION: 1. No confluent infiltrates. Electronically signed by: Maricel Hernandez MD (02/25/2020 5:39 PM) [facility] DICTATED AND SIGNED BY: BLANCA HERNANDEZ MD DATE: 02/25/201738 CC: PCP,NO; PATRICIA FORD DO ~ (PATRICIA FORD DO) Impressions: EXAM: CHEST ONE VIEW. HISTORY: Cough. COMPARISON: None. FINDINGS: A frontal view of the chest is obtained. There are no confluent infiltrates. There is no pneumothorax or pleural effusion. The heart is not enlarged. IMPRESSION: 1. No confluent infiltrates. Electronically signed by: Maricel Hernandez MD (02/25/2020 5:39 PM) [facility] DICTATED AND SIGNED BY: BLANCA HERNANDEZ MD DATE: 02/25/201738 CC: PCP,AMARI; PATRICIA FORD DO ~ (JOVANA RODRIGUEZ DO) Course & Med Decision Making: Course & Med Decision Making Pertinent Labs and Imaging studies reviewed. (See chart for details) Concern for generalized fatigue - broad differential. [facility]/covid test and labs pending. Normal cxr. HR 95 on arrival. Speaking in full sentences, no respiratory distress. Thyroid etiology possible but pe does not resemble an endocrine emergency. Due to shift change, pt was signed out to oncoming physician Dr. Rodriguez. (PATRICIA FORD DO) Course & Med Decision Making Patient's labs are unremarkable. His chest x-ray is negative for acute findings. His mono screen is negative. The patient appears to have a viral illness of some kind. I have advised supportive care at home. He is stable for discharge at this time. (JOVANA RODRIGUEZ DO) Dragon Disclaimer: Dragon Disclaimer: This electronic medical record was generated, in whole or in part, using a voice recognition dictation system. (PATRICIA FORD DO) Departure Departure: Impression: Primary Impression: Viral URI with cough Disposition: 01 DC HOME SELF CARE/HOMELESS Condition: STABLE Referrals: PCP,AMARI (PCP) Patient Instructions: Upper Respiratory Infection, Adult, [id number] PATRICIA FORD DO Feb 25, 2020 18:02 JOVANA RODRIGUEZ DO Feb 25, 2020 19:28
[2020-02-25 18:42] LABS: BASO % 0 % (0-3); EOS # 0.1 x10^3/uL (0.0-0.7); EOS % 1 % (0-3); HEMATOCRIT 47.1 % (39.0-53.0); HEMOGLOBIN 15.6 g/dL (13.0-17.5); LYMPH # 1.9 x10^3/uL (1.0-4.8); LYMPH % 22 % (24-48); MEAN CORPUSCULAR HEMOGLOBIN 27 pg (25-35); MEAN CORPUSCULAR HGB CONC 33 g/dL (31-37); MEAN CORPUSCULAR VOLUME 81 fL (79-100); MONO # 0.6 x10^3/uL (0.0-1.1); MONO % 7 % (0-9); NEUT # 5.8 x10^3uL (1.8-7.7); NEUT % 69 % (31-73); PLATELET COUNT 219 x10^3/uL (140-400); RED BLOOD COUNT 5.81 x10^6/uL (4.30-5.70); RED CELL DISTRIBUTION WIDTH 13.6 % (11.5-14.5); WHITE BLOOD COUNT 8.4 x10^3/uL (4.0-11.0)
[2020-02-25 18:49] LABS: MONONUCLEOSIS PATIENT NEGATIVE (NEGATIVE)
[2020-02-25 18:50] LABS: CALCIUM 9.2 mg/dL (8.5-10.1); CREATININE 1.2 mg/dL (0.7-1.3); GFR 66.4; POTASSIUM 3.2 mmol/L (3.5-5.1)
[2020-02-25 18:56] LABS: ALBUMIN 3.7 g/dL (3.4-5.0); ALBUMIN/GLOBULIN RATIO 1.1 (1.0-1.7); TOTAL BILIRUBIN 0.7 mg/dL (0.2-1.0); TOTAL PROTEIN 7.2 g/dL (6.4-8.2)
[2020-02-25 19:30] VITALS: BP 134/77
== END 2020-02-25 19:34 | disposition home or self-care (01) ==
LOC: MERGE 16:58 → ER 16:58
DX: J06.9 Acute upper respiratory infection, unspecified (principal); I10 Essential (primary) hypertension; I48.91 Unspecified atrial fibrillation; G47.00 Insomnia, unspecified
CPT/HCPCS: 36415; 71045; 80053; 84484; 85025; 86308; 93005; 99285

== ENCOUNTER 2021-02-16 10:19 | Emergency (ER) | payer SELFPAY ==
[~2021-02-16] VITALS: Ht 182.9 cm; Wt 136.0 kg
--- NOTE | 2021-02-16 10:48 | RAD ---
EXAM: Chest, single view. HISTORY: Shortness of breath. COMPARISON: None. FINDINGS: A frontal view of the chest is obtained. There is no infiltrate, pleural effusion or pneumo thorax. The heart is normal in size. IMPRESSION: No acute pulmonary finding. Electronically signed by: Lorie Jackson MD (02/16/2021 10:46 AM) [id number]
--- NOTE | 2021-02-16 10:59 | PHYS DOC ---
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 Patient states he tested COVID+ 12 days ago, but no longer has symptoms. His only lingering complaint is some mild fatigue. Today at home, his O2 monitor showed a oxygen saturation of 94%. Patient denies loss of smell or taste, shortness of breath, cough. Patient has a coworker that is hospitalized with COVID pneumonia, so he was concerned that he may be developing that himself. Patient does report a history of A. fib with an unsuccessful ablation. He now takes flecainide as well as metoprolol. Patient has no other complaints at this time. (NADIR FERNANDES) Review of Systems: Review of Systems: ROS negative except as mentioned in HPI. (NADIR FERNANDES) Allergies: Allergies: Allergies Coded Allergies Type Severity Reaction Last Updated Verified warfarin Allergy Unknown 07/29/17 Yes (NADIR FERNANDES) Physical Exam: PE: Constitutional: Well developed, well nourished, no acute distress, non-toxic ap pearance. Cardiovascular: Heart rate regular, no murmur. Lungs & Thorax: Bilateral breath sounds clear to auscultation. Skin: Warm, dry, no erythema, no rash. Extremities: No tenderness, no cyanosis, no clubbing, ROM intact, no edema. Neurologic: Alert and oriented x3, normal motor function, normal sensory function, no focal deficits noted. (NADIR FERNANDES) Current Patient Data: Labs: Laboratory Tests Test 02/16/21 10:43 White Blood Count 4.8 x10^3/uL (4.0-11.0) Red Blood Count 5.23 x10^6/uL (4.30-5.70) Hemoglobin 14.2 g/dL (13.0-17.5) Hematocrit 42.5 % (39.0-53.0) Mean Corpuscular Volume 81 fL (79-100) Mean Corpuscular Hemoglobin 27 pg (25-35) Mean Corpuscular Hemoglobin Concent 33 g/dL (31-37) Red Cell Distribution Width 13.2 % (11.5-14.5) Platelet Count 169 x10^3/uL (140-400) Neutrophils (%) (Auto) 73 % (31-73) Lymphocytes (%) (Auto) 18 % (24-48) Monocytes (%) (Auto) 8 % (0-9) Eosinophils (%) (Auto) 1 % (0-3) Basophils (%) (Auto) 0 % (0-3) Neutrophils # (Auto) 3.5 x10^3uL (1.8-7.7) Lymphocytes # (Auto) 0.9 x10^3/uL (1.0-4.8) Monocytes # (Auto) 0.4 x10^3/uL (0.0-1.1) Eosinophils # (Auto) 0.1 x10^3/uL (0.0-0.7) Basophils # (Auto) 0.0 x10^3/uL (0.0-0.2) Sodium Level 141 mmol/L (136-145) Potassium Level 3.9 mmol/L (3.5-5.1) Chloride Level 103 mmol/L (98-107) Carbon Dioxide Level 29 mmol/L (21-32) Anion Gap 9 (6-14) Blood Urea Nitrogen 14 mg/dL (8-26) Creatinine 0.8 mg/dL (0.7-1.3) Estimated GFR (Cockcroft-Gault) 105.5 Glucose Level 118 mg/dL (70-99) Calcium Level 8.7 mg/dL (8.5-10.1) Vital Signs: VS - Last 72 Hours, by Label Date Time Temp Pulse Resp B/P (MAP) Pulse Ox O2 Delivery O2 Flow Rate FiO2 02/16/21 10:20 98.5 83 17 146/86 (106) 97 Room Air (MARQUETTENADIR TN) Radiology/Procedures: Radiology/Procedures: PROCEDURE: PORTABLE CHEST 1V EXAM: Chest, single view. HISTORY: Shortness of breath. COMPARISON: None. FINDINGS: A frontal view of the chest is obtained. There is no infiltrate, pleural effusion or pneumothorax. The heart is normal in size. IMPRESSION: No acute pulmonary finding. Electronically signed by: Lorie Jackson MD (02/16/2021 10:46 AM) [id number] (NADIR FERNANDES) Heart Score: C/O Chest Pain: No (NADIR FERNANDES) Course & Med Decision Making: Course & Med Decision Making Pertinent Labs and Imaging studies reviewed. (See chart for details) Patient does not appear hypoxic or in any respiratory distress on exam, however chest x-ray will be obtained to rule out any developing pneumonia due to Covid history. Blood work will also rule out any septicemia as well as electrolyte abnormalities contributing to fatigue. Work-up is reassuring and patient will be discharged home with instruction to return should he feel short of breath or develop new symptoms. (NADIR FERNANDES) Dragon Disclaimer: Dragon Disclaimer: This electronic medical record was generated, in whole or in part, using a voice recognition dictation system. (NADIR FERNANDES) Attending Co-Sign The patient was seen and interviewed as well as examined at the bedside. The chart was reviewed. The case was discussed. Agree with the plan of care. (JOVANA RODRIGUEZ DO) Departure Departure: Impression: Primary Impression: History of COVID-19 Disposition: HOME / SELF CARE / HOMELESS Condition: STABLE Referrals: PCP,NO (PCP) Patient Instructions: Incentive Spirometer, Shortness of Breath, [id number] Additional Instructions: Your work-up today was reassuring that you do not have Covid pneumonia at this time. Please return to the emergency department if you develop shortness of breath, difficulty breathing, or develop new symptoms. NADIR FERNANDES Feb 16, 2021 10:59 JOVANA RODRIGUEZ DO Feb 22, 2021 10:34
[2021-02-16 11:04] LABS: BASO % 0 % (0-3); EOS # 0.1 x10^3/uL (0.0-0.7); EOS % 1 % (0-3); HEMATOCRIT 42.5 % (39.0-53.0); HEMOGLOBIN 14.2 g/dL (13.0-17.5); LYMPH # 0.9 x10^3/uL (1.0-4.8); LYMPH % 18 % (24-48); MEAN CORPUSCULAR HEMOGLOBIN 27 pg (25-35); MEAN CORPUSCULAR HGB CONC 33 g/dL (31-37); MEAN CORPUSCULAR VOLUME 81 fL (79-100); MONO # 0.4 x10^3/uL (0.0-1.1); MONO % 8 % (0-9); NEUT # 3.5 x10^3uL (1.8-7.7); NEUT % 73 % (31-73); PLATELET COUNT 169 x10^3/uL (140-400); RED BLOOD COUNT 5.23 x10^6/uL (4.30-5.70); RED CELL DISTRIBUTION WIDTH 13.2 % (11.5-14.5); WHITE BLOOD COUNT 4.8 x10^3/uL (4.0-11.0)
[2021-02-16 11:10] LABS: CALCIUM 8.7 mg/dL (8.5-10.1); CREATININE 0.8 mg/dL (0.7-1.3); GFR 105.5; POTASSIUM 3.9 mmol/L (3.5-5.1)
[2021-02-16 11:40] VITALS: BP 126/76
== END 2021-02-16 11:45 | disposition home or self-care (01) ==
LOC: ER 10:19
DX: R50.9 Fever, unspecified (principal); I48.91 Unspecified atrial fibrillation; Z20.822 Contact with and (suspected) exposure to COVID-19
CPT/HCPCS: 36415; 71045; 80048; 85025; 99284-25